=== PATIENT | female | born 1945 | race Caucasian/White ===

== ENCOUNTER 2017-01-25 11:30 | Day surgery (SDC) | payer MEDICARE, OTHER ==
[2017-01-21 10:07] LABS: BASOPHILS 0.3 %; BASOPHILS ABSOLUTE 0.02 10/3/uL (0.0-0.16); EOSINOPHILS 2.2 %; EOSINOPHILS ABSOLUTE 0.14 10/3/uL (0.0-0.53); HEMOGLOBIN 12.5 g/dL (12.0-16.0); IMMATURE GRANULOCYTES 0.2 %; IMMATURE GRANULOCYTES ABSOLUTE 0.01 10/3/uL (0.0-0.11); LYMPHOCYTES 16.1 %; LYMPHOCYTES ABSOLUTE 1.02 10/3/uL (0.67-4.30); MEAN CORPUS HGB CONC 32.6 g/dL (32.0-36.0); MEAN CORPUSCULAR HEMOGLOB 30.3 pg (26.0-34.0); MEAN CORPUSCULAR VOLUME 92.7 fL (80-100); MEAN PLATELET VOLUME 10.5 fL (9.2-13.0); MONOCYTES 6.2 %; MONOCYTES ABSOLUTE 0.39 10/3/uL (0.21-1.20); NEUTROPHILS ABSOLUTE 4.76 10/3/uL (2.02-8.40); PLATELET COUNT 201 10/3/uL (150-400); RED CELL COUNT 4.13 10/6/uL (4.0-5.6); WHITE BLOOD CELLS 6.3 10/3/uL (4.5-10.5)
[2017-01-21 10:12] LABS: HEMATOCRIT 38.3 % (36.0-48.0); MANUAL DIFF NO %
[2017-01-21 10:25] LABS: A/G RATIO 0.9 (0.7-1.9); ALBUMIN 3.6 G/DL (3.5-5.0); ALKALINE PHOSPHATASE 83 U/L (45-117); BUN (BLOOD UREA NITROGEN) 19 MG/DL (6-23); CALCIUM, SERUM 9.2 MG/DL (8.5-10.4); CHLORIDE, SERUM 103 MMOL/L (96-112); CO2 (CARBON DIOXIDE) 33 MMOL/L (24-34); CREATININE 0.64 MG/DL (0.55-1.02); GFR AFRICAN AMERICAN 103 ML/MIN (>=60); GFR NON AFRICAN AMERICAN 89 ML/MIN (>=60); GLOBULIN 3.9 G/DL (2.5-4.1); POTASSIUM, SERUM 3.8 MMOL/L (3.5-5.3); SGOT(AST) 19 U/L (5-40); SGPT(ALT) 19 U/L (5-65); SODIUM, SERUM 142 MMOL/L (135-148); TOTAL PROTEIN 7.5 G/DL (6.0-8.5)
[2017-01-21 10:27] LABS: GLUCOSE, SERUM 75 MG/DL (60-99); TOTAL BILIRUBIN 0.8 MG/DL (0-1.2)
--- NOTE | ~2017-01-25 | OP ---
Record Of Operation [facility] [address] [place] [address] NAME: REINALDO [facility] : 41 STATUS : [facility]#: [id number] AGE: 71 ADM/REG DATE : 01/25/17 MR#: [id number] REPORT SERV DATE: 01/26/17 DICTATED BY: KWAME ARCOS III DATE: 01/25/17 REPORT STATUS : Draft TRANSCRIBED BY: MODL DATE: 01/25/17 DATE OF PROCEDURE: 01/25/2017 PROCEDURE: Cystoscopy with urethral dilatation. PREOPERATIVE DIAGNOSIS: Micro hematuria and possible urethral mass. POSTOPERATIVE DIAGNOSIS: Micro hematuria and possible urethral mass, with urethral caruncle. INDICATION: The patient is a 71-year-old white female, with epilepsy, who is nonverbal, who has had micro hematuria. I tried to examine her in the office and she had a mass that I could not visualize well without discomfort, and looked to be a urethral caruncle, it was difficult passing the scope into the urethra. She came in for a cystoscopy, possible urethral biopsy, and cystoscopy. ANESTHESIA: General. SURGEON: Kwame Arcos M.D. DESCRIPTION OF PROCEDURE: Following induction of adequate general anesthesia, the patient was placed in the dorsal lithotomy position. The urethral mass was clearly caruncle and could be reduced back into the urethra. With the small cystoscope, I was able to work the scope into the urethra, followed by the 20-[place] cystoscope. There was some crystalline material in the bladder. The orifices were identified. There were no tumors or stones. The bladder was drained and the procedure was terminated. The patient tolerated the procedure well. OB/MODL Kwame Arcos III, M.D. / [id number] CC: Tea Navas III, TINA * [place]
[~2017-01-25 11:30] MED LIST: ALLEGRA180 PO; ATRONASAL3 NAS; CALTRA600D PO; FLONASE NAS; HYDROCHLOROT25 MG PO; LEVOTHYROXIN100 MCG PO; LUBRIDERM LOTION4 O2 TOP; PRAVAC PO; PRILO PO; RECLAST IV; VITAMIN D31000 UNIT PO; ZOL100 PO
== END 2017-01-25 15:53 | disposition home or self-care (01) ==
LOC: SDC 11:30
PROVIDERS: Urology
PROC: 0T7D8ZZ Dilation of Urethra, Via Natural or Artificial Opening Endoscopic (ICD-10-PCS; principal; 2017-01-25 13:15)
DX: R31.29 Other microscopic hematuria (principal); N36.2 Urethral caruncle; I10 Essential (primary) hypertension; M81.0 Age-related osteoporosis without current pathological fracture; R56.9 Unspecified convulsions; K21.9 Gastro-esophageal reflux disease without esophagitis; E03.9 Hypothyroidism, unspecified; F32.9 Major depressive disorder, single episode, unspecified; Z88.0 Allergy status to penicillin; Z88.8 Allergy status to other drugs, medicaments and biological substances
CPT/HCPCS: 71020; 80053; 85025; 93005; J2405; J3010